=== PATIENT | male | born 1955 | race Caucasian/White ===

== ENCOUNTER 2017-08-04 18:26 | Emergency (ER) | payer OTHER ==
[~2017-08-04] VITALS: Ht 182.9 cm; Wt 83.9 kg
[2017-08-04] MEDS ORDERED: KEFLEX500 M1 PO (20:28)
== END 2017-08-04 21:39 | disposition home or self-care (01) ==
LOC: ER 18:26
DX: R04.0 Epistaxis (principal); I10 Essential (primary) hypertension; E78.00 Pure hypercholesterolemia, unspecified; Z98.890 Other specified postprocedural states